=== PATIENT | male | born 1945 | race Caucasian/White ===

== ENCOUNTER 2016-07-09 08:43 | Day surgery (SDC) | payer OTHER ==
[2016-07-09 09:58] VITALS: TEMP 98.2; BMI 39.5
[2016-07-09] MEDS ORDERED: FUROSEMIDE 40 MG/4 ML INJECTABLE VIAL IVPUSH SCH (11:00)
--- NOTE | 2016-07-09 13:25 | CONSULT ---
Consult Consult Specialty:: Neurology Reason for Consultation:: Weakness - History of Present Illness History of Present Illness: 70-year-old man with a significant past medical history of pancreatic cancer ( diagnosed Stage 2 in 02/2015 - s/p radiation and chemotherapy therapy, currently on gemcitabine), CHF, cardiac arrest (x1), CT (x 7 [first at 32] - s/p bypass surgery + pacemaker defibrillator (last one replaced in 2013); not on Coumadin) , and gout, here for infusion. Neurology consulted for weakness. As per patient, long history of weakness in lower extremities ongoing for several months. Has noted new onset of falls and requires a walker for assistance. Reports numbness and tingling in both feet. - Alcohol/Substance Use Hx Alcohol Use: No - Smoking History Smoking history: Never smoked Aproximately how many cigarettes per day: 0 Home Medications - Allergies Allergies/Adverse Reactions: Allergies Allergy/AdvReac Type Severity Reaction Status Date / Time Iodinated Contrast Media - Allergy Severe Difficulty Verified 08/27/15 13:38 Oral and Breathing shellfish derived Allergy Severe Difficulty Verified 08/27/15 13:38 Breathing venom-honey bee Allergy Severe Difficulty Verified 08/27/15 13:38 Breathing codeine Allergy Mild Itching Verified 08/27/15 13:38 mushroom Allergy Unknown Verified 08/27/15 13:38 - Home Medications Home Medications: Ambulatory Orders Acetaminophen [Tylenol Extra Strength] 500 mg PO QID PRN 08/27/15 Amiodarone HCl [Cordarone -] 200 mg PO DAILY 08/27/15 Aspirin [Aspirin EC] 81 mg PO DAILY 08/27/15 Cyanocobalamin [Vitamin B12 -] 1,000 mcg PO DAILY 08/27/15 Furosemide [Lasix -] 40 mg PO DAILY 08/27/15 Gemcitabine HCl IV WEEKLY 08/27/15 Isosorbide Mononitrate [Imdur -] 30 mg PO DAILY 08/27/15 Metoprolol Succinate [Toprol Xl] 50 mg PO HS 08/27/15 Metoprolol Succinate [Toprol Xl] 100 mg PO DAILY 08/27/15 Multivit-Min/FA/Lycopen/Lutein [Centrum Silver Tablet] 1 each PO DAILY 08/27/15 Oxycodone HCl 5 mg PO QID PRN MDD 4 TABS 08/27/15 Promethazine HCl [Phenergan Liquid -] 5 ml PO QID PRN 03/14/16 Sacubitril/Valsartan [Entresto 24 mg-26 mg Tablet] 1 each PO BID 08/27/15 Review of Systems - Review of Systems Constitutional: reports: No Symptoms Eyes: reports: No Symptoms HENT: reports: No Symptoms Neck: reports: No Symptoms Cardiovascular: reports: No Symptoms Respiratory: reports: No Symptoms Gastrointestinal: reports: No Symptoms Physical Exam Vital Signs: Vital Signs Temperature 98.2 F 07/09/16 09:49 Pulse Rate 75 07/09/16 09:49 Respiratory Rate 18 07/09/16 09:49 Blood Pressure 106/55 07/09/16 09:49 O2 Sat by Pulse Oximetry (%) Constitutional: Yes: Well Nourished, No Distress Eyes: Yes: EOM Intact HENT: Yes: Atraumatic, Normocephalic Neck: Yes: Supple Respiratory: Yes: Regular Neurological: Yes: Other (MS awake alert oriented to time, place and person CNII -XII EOMI, face symmetric, tongue in midline Sensory Decreased vibration in lower extremities, ? decrease light touch bilateral feet Motor 5/5 x4) Assessment/Plan 71 year old man with a significant past medical history of pancreatic cancer status post radiation and chemotherapy therapy, currently on gemcitabine, CHF, cardiac arrest (x1), CT (x 7 [first at 32] - s/p bypass surgery + pacemaker defibrillator (last one replaced in 2013); not on Coumadin), and gout, here for infusion. Neurology consulted for weakness. As per patient, long history of weakness in lower extremities ongoing for several months. Has noted new onset of falls and requires a walker for assistance. Reports numbness and tingling in both feet. Exam significant for markedly decreased vibration in lower extremities, strength essentially intact. Unable to walk without walker Impression Likely peripheral neuropathy contributing to his symptoms of gait instability Recommend CT head without contrast as outpatient to rule out intracranial source Unable to undergo MRI due to pacer EMG/NCV as outpatient Follow up with [facility] for further management and workup
[2016-07-09 18:12] VITALS: BP 115/59; PULSE 71
== END 2016-07-09 18:15 | disposition home or self-care (01) ==
LOC: FBLOOD 08:43 → FM/S 08:47 → FBLOOD 18:15
PROVIDERS: ATTEND Internal Medicine Hematology & Oncology
PROC: 30233N1 Transfusion of Nonautologous Red Blood Cells into Peripheral Vein, Percutaneous Approach (ICD-10-PCS; principal; 2016-07-09)
PROC: 3E033GC Introduction of Other Therapeutic Substance into Peripheral Vein, Percutaneous Approach (ICD-10-PCS; 2016-07-09)
DX: D64.9 Anemia, unspecified (principal)
CPT/HCPCS: 36430; 86850; 86900; 86901; 86922; 96365; 96366; P9038; P9058

== ENCOUNTER 2016-08-05 14:56 | Inpatient (IN) | payer OTHER ==
--- NOTE | 2016-08-05 16:18 | PDOC ---
History of Present Illness - General Chief Complaint: Edema Stated Complaint: BLL SWELLING UPPER RT ARM SWELLING Time Seen by Provider: 08/05/16 15:49 - History of Present Illness Initial Comments: 08/05/16 16:13 71-year-old male with a past medical history of a prior CABG, CHF, and hypertension He was on Lasix 40 mg 3 times a week, which was recently increased to 40 mg daily He also has a history of pancreatic cancer with liver mets He got chemotherapy today and Dr. Christianson's office, was sent from Dr. Christianson's office He is complaining of bilateral leg swelling, left greater than right, and right arm swelling for one week He did get his chemotherapy today and a vein in his right arm He denies any associated chest pain, palpitations, shortness of breath, fevers and chills, or cough He has chronic abdominal pain from his metastatic pancreatic cancer, but it is well controlled with his narcotic regimen, and he has no change in his chronic abdominal pain today He denies any history of prior blood clots He has had significant anemia in the past requiring transfusion He denies any fall or injury He denies any other complaints at this time, and the remainder of the review of systems is negative Past History - Past Medical History Allergies/Adverse Reactions: Allergies Allergy/AdvReac Type Severity Reaction Status Date / Time Iodinated Contrast Media - Allergy Severe Difficulty Verified 08/27/15 13:38 Oral and Breathing shellfish derived Allergy Severe Difficulty Verified 08/27/15 13:38 Breathing venom-honey bee Allergy Severe Difficulty Verified 08/27/15 13:38 Breathing codeine Allergy Mild Itching Verified 08/27/15 13:38 mushroom Allergy Unknown Verified 08/27/15 13:38 Home Medications: Ambulatory Orders Acetaminophen [Tylenol -] 500 mg PO Q6H PRN 08/05/16 Amiodarone HCl 200 mg PO BID 08/05/16 Aspirin [ASA -] 81 mg PO DAILY 08/05/16 Capecitabine 500 mg PO BID 08/05/16 Furosemide [Lasix] 40 mg PO DAILY 08/05/16 Metoprolol Succinate [Toprol Xl] 50 mg PO HS 08/05/16 Metoprolol Succinate [Toprol Xl] 100 mg PO DAILY 08/05/16 Mexiletine HCl 150 mg PO BID 08/05/16 Multivit-Min/FA/Lycopen/Lutein [Centrum Silver Tablet] 1 each PO DAILY 08/05/16 Ondansetron [Zofran Odt -] 4 mg SL PRN PRN 08/05/16 Oxycodone HCl/Acetaminophen [Percocet 5-325 mg Tablet] 1 tab PO Q3H PRN Pramipexole Di-HCl [Mirapex] 0.5 mg PO BID 08/05/16 Ranolazine [Ranexa -] 500 mg PO BID 08/05/16 Vitamin B-12 1 tab PO DAILY 08/05/16 Vitamin B6 1 tab PO DAILY 08/05/16 Meclizine HCl [Antivert -] 12.5 mg PO TID PRN 08/06/16 Cancer: Yes (PANCREATIC,LIVER, HX RT & ON CHEMOTHERAPY) Cardiac Disorders: Yes (MO X7, PPM/DEFIBRILLATOR) Disorders: Yes (RENAL INSUFFICIENCY) - Surgical History Cardiac Surgery: Yes (CABG X5) Cholecystectomy: Yes - Psycho/Social/Smoking Cessation Hx Anxiety: No Suicidal Ideation: No Smoking History: Never smoked Have you smoked in the past 12 months: No Number of Cigarettes Smoked Daily: 0 Cigars Per Day: 0 Information on smoking cessation initiated: No Hx Alcohol Use: No Drug/Substance Use Hx: No Substance Use Type: None Hx Substance Use Treatment: No Review of Systems - Review of Systems Able to Perform ROS?: Yes Comments:: 08/05/16 16:14 12 point review of systems is as per history of present illness and otherwise negative *Physical Exam - Vital Signs Last Vital Signs Temp Pulse Resp BP Pulse Ox 97.8 F 83 20 141/67 97 08/05/16 14:57 08/05/16 14:57 08/05/16 14:57 08/05/16 14:57 08/05/16 14:57 - Physical Exam Comments: 08/05/16 16:18 Physical exam Last Vital Signs Temp Pulse Resp BP Pulse Ox 97.8 F 83 20 141/67 97 08/05/16 14:57 08/05/16 14:57 08/05/16 14:57 08/05/16 14:57 08/05/16 14:57 GENERAL: The patient is awake, alert, and fully oriented, and in no apparent distress. HEAD: Normal with no signs of trauma. EYES: Sclera anicteric, conjunctiva normal ENT: Moist mucous membranes. NECK: Normal range of motion, supple LUNGS: Breath sounds equal, clear to auscultation bilaterally. No wheezes, and no crackles. HEART: Regular rate and rhythm, normal S1 and S2 without murmur, rub or gallop. ABDOMEN: Soft, nontender, normoactive bowel sounds. No guarding, no rebound. No masses appreciated. EXTREMITIES: There is pitting edema bilaterally in the lower extremities, left greater than right (donor site for CABG is on the left leg) There is no calf or thigh tenderness, the dorsalis pedis pulses are present and full in the lower extremities bilaterally, and the toes are warm with intact sensation bilaterally The right arm is swollen with pitting edema The radial pulses intact, with intact sensation in all fingers in a good hand internet consultant The left upper extremity is essentially normal NEUROLOGICAL: Patient is alert and answering questions, and moving all extremities equally Grossly nonfocal neurologic exam PSYCH: Normal mood, normal affect. SKIN: Warm, Dry, ED Treatment Course - LABORATORY CBC & Chemistry Diagram: 08/06/16 06:00 08/06/16 06:00 - RADIOLOGY Radiology Studies Ordered: Category Date Time Status DUPLEX VASCUL US-1 ARM [US] Stat Ultrasound 08/05/16 16:10 Ordered DUPLEX VASCUL US-2LEGS [US] Stat Ultrasound 08/05/16 16:10 Ordered Medical Decision Making - Medical Decision Making 08/05/16 16:20 Bilateral edema in the lower extremities, she left greater than right, with clear lungs, as well as right upper extremity edema, and a patient with metastatic pancreatic cancer, who is currently getting chemotherapy, last dose today I am concerned about potential clots, versus CHF, versus hypoalbuminemic edema Of note the lungs are clear at this time 08/05/16 17:41 Stat bilateral lower the ultrasound-preliminary report from [facility]-extensive DVT bilateral lower extremity Right [id number] for DVT All labwork and reading pending Will start heparin bolus and drip Heparin 5000 bolus, 1000 drip 08/05/16 17:44 Case discussed with hospitalist-will admit-awaiting all studies-will need to go to telemetry at [facility] 08/05/16 18:39 Laboratory Results - last 24 hr 08/05/16 08/05/16 08/05/16 17:37 17:37 17:37 WBC 4.6 D RBC 3.17 L D Hgb 9.7 L D Hct 31.1 L D MCV 98.1 H MCHC 31.1 L RDW 23.0 H D Plt Count 222 D MPV 7.4 L INR 1.18 Sodium 135 L Potassium 4.5 Chloride 104 Carbon Dioxide 21 L Anion Gap 10 BUN 23 H Creatinine 1.4 H Creat Clearance w eGFR 49.82 Random Glucose 138 H Calcium 8.8 Magnesium 1.7 L Total Bilirubin 0.3 D AST 44 H D ALT 29 D Alkaline Phosphatase 262 H Total Protein 5.7 L Albumin 3.1 L 08/05/16 19:00 Case and all results discussed again with Dr. Mitchell There are no beds at [facility], will admit here to [facility] Hospitalist will see pt bobby 08/05/16 19:07 DVT ultrasound is read by radiology There is extensive bilateral lower extremity DVTs Right arm series pending-preliminary negative by holter technician Impression-extensive bilateral lower extremity DVT, metastatic pancreatic cancer *DC/Admit/Observation/Transfer Diagnosis at time of Disposition: DVT, bilateral lower limbs Qualifiers: Chronicity: acute - Discharge Dispostion Admit: Yes
[2016-08-05] MEDS ORDERED: HEPARIN NA (PORCINE) 5,000 UNITS/ML 1ML VIAL IVPUSH PRN (17:42)
[2016-08-05 17:45] LABS: MCH 30.5 pg (25.7-33.7); MCHC 31.1 g/dl (32.0-35.9); MEAN CELL VOLUME 98.1 fl (80-96); MEAN PLT VOLUME 7.4 fl (7.5-11.1); PLATELET COUNT 222 K/MM3 (134-434); WHITE BLOOD COUNT 4.6 K/mm3 (4.0-10.0)
[2016-08-05] MEDS ORDERED: HEPARIN INFUSION - 500 ML IVPB SCH (17:45)
[2016-08-05 17:57] LABS: INR 1.18 (0.82-1.09); PROTHROMBIN TIME (PATIENT) 13.2 SEC (10.2-13.0)
[2016-08-05 18:03] LABS: ALBUMIN 3.1 g/dl (3.5-5.0); BILIRUBIN,TOTAL 0.3 mg/dl (0.2-1.0); CALCIUM 8.8 mg/dl (8.4-10.2); CREATININE 1.4 mg/dl (0.6-1.3); MAGNESIUM 1.7 mg/dL (1.8-2.4); TOT PROT 5.7 g/dl (6.4-8.3)
[2016-08-05] MEDS ORDERED: HEPARIN INFUSION - 500 ML IVPB ONE (18:13)
[2016-08-05] MEDS ORDERED: HEPARIN NA (PORCINE) 5,000 UNITS/ML 1ML VIAL ONE (18:13)
[2016-08-05] MEDS ORDERED: ONDANSETRON *ODT* 4 MG TABLET SL PRN (22:18)
--- NOTE | 2016-08-05 22:29 | HP ---
CHIEF COMPLAINT: B/L LE edema PCP: Laci Lynch, oncology Dr. Christianson HISTORY OF PRESENT ILLNESS: This is a 71 year old male with a past medical history of CAD, AK x 7, s/p 5v CABG, CHF s/p AICD, HTN, cardiac arrest, pancreatic CA with liver mets, gout who presented to the ED from his oncologist office for swelling to bilat LE and right arm. Pt denies SOB, chest pain, palpitations, dizziness, N/V/D. Chronic abdominal pain r/t pancreatic CA, but no worse than usual. ER course was notable for: (1) doppler + B/L LE DVT (2) started on heparin drip Recent Travel: pt denies PAST MEDICAL HISTORY: CAD, AK x 7, s/p 5v CABG CHF s/p AICD HTN cardiac arrest pancreatic CA with liver mets gout PAST SURGICAL HISTORY: cholecystectomy AICD CABG Social History: Smoking: pt quit 50y ago, smoke approx 3ppd x 5 years Alcohol: rarely - 1-2x/year Drugs: pt denies Family History: adopted 8 total children: one son secondary to MVC, 1 son with 3vCABG age 30, others with OA, knee/back problems Allergies Iodinated Contrast Media - Oral and Allergy (Severe, Verified 08/27/15 13:38) Difficulty Breathing shellfish derived Allergy (Severe, Verified 08/27/15 13:38) Difficulty Breathing venom-honey bee Allergy (Severe, Verified 08/27/15 13:38) Difficulty Breathing codeine Allergy (Mild, Verified 08/27/15 13:38) Itching mushroom Allergy (Unknown, Verified 08/27/15 13:38) HOME MEDICATIONS: 3 Medication Instructions Recorded Acetaminophen [Tylenol -] 500 mg PO Q6H PRN 08/05/16 Amiodarone HCl 200 mg PO BID 08/05/16 Aspirin [ASA -] 81 mg PO DAILY 08/05/16 Capecitabine 500 mg PO DAILY 08/05/16 Furosemide [Lasix] 40 mg PO DAILY 08/05/16 Metoprolol Succinate [Toprol Xl] 50 mg PO HS 08/05/16 Metoprolol Succinate [Toprol Xl] 100 mg PO DAILY 08/05/16 Mexiletine HCl 150 mg PO BID 08/05/16 Multivit-Min/FA/Lycopen/Lutein 1 each PO DAILY 02/21/17 [Centrum Silver Tablet] Ondansetron [Zofran Odt -] 4 mg SL PRN PRN 08/05/16 Oxycodone HCl/Acetaminophen 1 tab PO Q3H 08/05/16 [Percocet 5-325 mg Tablet] Pramipexole Di-HCl [Mirapex] 0.5 mg PO BID 08/05/16 Ranolazine [Ranexa -] 500 mg PO BID 08/05/16 Vitamin B-12 1 tab PO DAILY 08/05/16 Vitamin B6 1 tab PO DAILY 08/05/16 REVIEW OF SYSTEMS CONSTITUTIONAL: Absent: fever, chills, diaphoresis, generalized weakness, malaise, loss of appetite, weight change HEENT: Absent: rhinorrhea, nasal congestion, throat pain, throat swelling, difficulty swallowing, mouth swelling, ear pain, eye pain, visual changes CARDIOVASCULAR: Present: peripheral edema Absent: chest pain, syncope, palpitations, irregular heart rate, lightheadedness RESPIRATORY: Absent: cough, shortness of breath, dyspnea with exertion, orthopnea, wheezing, stridor, hemoptysis GASTROINTESTINAL: Absent: abdominal pain, abdominal distension, nausea, vomiting, diarrhea, constipation, melena, hematochezia GENITOURINARY: Absent: dysuria, frequency, urgency, hesitancy, hematuria, flank pain, genital pain MUSCULOSKELETAL: Absent: myalgia, arthralgia, joint swelling, back pain, neck pain SKIN: Absent: rash, itching, pallor HEMATOLOGIC/IMMUNOLOGIC: Absent: easy bleeding, easy bruising, lymphadenopathy, frequent infections ENDOCRINE: Absent: unexplained weight gain, unexplained weight loss, heat intolerance, cold intolerance NEUROLOGIC: Absent: headache, focal weakness or paresthesias, dizziness, unsteady gait, seizure, mental status changes, bladder or bowel incontinence PSYCHIATRIC: Absent: anxiety, depression, suicidal or homicidal ideation, hallucinations. PHYSICAL EXAMINATION Vital Signs - 24 hr 3 08/05/16 08/05/16 14:57 19:44 Temperature 97.8 F 98 F Pulse Rate 83 Pulse Rate [ 74 Left] Respiratory 20 20 Rate Blood Pressure 141/67 Blood Pressure 121/62 [Right] O2 Sat by Pulse 97 95 Oximetry (%) GENERAL: Awake, alert, and fully oriented, in no acute distress. HEAD: Normal with no signs of trauma. EYES: Pupils equal, round and reactive to light, extraocular movements intact, sclera anicteric, conjunctiva clear. No lid lag. EARS, NOSE, THROAT: Ears normal, nares patent, oropharynx clear without exudates. Moist mucous membranes. NECK: Normal range of motion, supple without lymphadenopathy, JVD, or masses. LUNGS: Breath sounds equal, clear to auscultation bilaterally. No wheezes, and no crackles. No accessory muscle use. HEART: Regular rate and rhythm, normal S1 and S2 without murmur, rub or gallop. ABDOMEN: Soft, nontender, not distended, normoactive bowel sounds, no guarding, no rebound, no masses. No hepatomegaly or splenomegaly. MUSCULOSKELETAL: Normal range of motion at all joints. No bony deformities or tenderness. No CVA tenderness. UPPER EXTREMITIES: 2+ pulses, warm, well-perfused. No cyanosis. No clubbing. Cap refill <2 seconds. No peripheral edema. LOWER EXTREMITIES: 2+ pulses, warm, well-perfused. No calf tenderness. No peripheral edema. 2+ edema LLE, scar medial aspect, 1+ peripheral edema RLE NEUROLOGICAL: Cranial nerves II-XII intact. Normal speech. Normal gait. PSYCHIATRIC: Cooperative. Good eye contact. Appropriate mood and affect. SKIN: Warm, dry, normal turgor, no rashes or lesions noted. Laboratory Results - last 24 hr 3 08/05/16 08/05/16 08/05/16 17:37 17:37 17:37 WBC 4.6 D RBC 3.17 L D Hgb 9.7 L D Hct 31.1 L D MCV 98.1 H MCHC 31.1 L RDW 23.0 H D Plt Count 222 D MPV 7.4 L INR 1.18 Sodium 135 L Potassium 4.5 Chloride 104 Carbon Dioxide 21 L Anion Gap 10 BUN 23 H Creatinine 1.4 H Creat Clearance w eGFR 49.82 Random Glucose 138 H Calcium 8.8 Magnesium 1.7 L Total Bilirubin 0.3 D AST 44 H D ALT 29 D Alkaline Phosphatase 262 H B-Natriuretic Peptide 3426.53 H Total Protein 5.7 L Albumin 3.1 L CXR: Impression: Interval atelectatic changes and infiltrates in the right lung base US Duplex vascular BLLE: In the right lower extremity there is noncompressibility of the right common femoral vein with flow seen on the color Doppler images is suggestive of partial thrombosis. There is also thromboses of the superficial femoral and popliteal vein. Minimal flow on the right posterior tibial vein with normal compression. Normal flow in the greater saphenous and deep femoral vein In the left lower extremity there is also evidence of deep venous thromboses involving the common femoral, superficial femoral and popliteal vein. There is noncompression of the left posterior tibial vein however some flow was visualized. Normal flow in the left greater saphenous vein. Thrombosis of the left deep femoral vein. Incidentally noted arterial atheromatous plaques are present, bilaterally. There is no evidence of a Hewitt' s cyst in the popliteal fossa, bilaterally. Impression: Bilateral lower leg deep venous thromboses, as described above Left deep femoral vein thrombosis with abnormal flow in the right deep femoral vein suggestive of partial thrombosis. Normal flow in the greater saphenous vein, bilaterally US Duplex vascular RUE: IMPRESSION: There is no evidence of deep venous thrombosis in the right upper extremity. ASSESSMENT/PLAN: 71yM with PMH CAD, AK x 7, s/p 5v CABG, CHF s/p AICD, HTN, cardiac arrest, pancreatic CA with liver mets, gout presented to the ED with B/L LE edema and right arm edema who has been admitted for DVT B/L LE DVT - cont heparin drip for now. - oncology consult for further plan of care. Pancreatic CA - hold capecitabine until oncology consult CAD/CHF/HTN - cont home medications including lasix 40mg daily FEN - tolerating po, defer IVF - Repeat labs in am - low sodium diet Dispo: Pt currently requires inpatient care. Visit type - Emergency Visit Emergency Visit: Yes ED Registration Date: 08/05/16 Care time: The patient presented to the Emergency Department on the above date and was hospitalized for further evaluation of their emergent condition. - New Patient This patient is new to me today: Yes Date on this admission: 08/05/16 - Critical Care Critical Care patient: No
[2016-08-05] MEDS ORDERED: METOPROLOL SUCCINATE 50 MG TAB.SR.24H (FP) ONE (23:38)
[2016-08-05 23:40] LABS: ANISOCYTOSIS 2+; PLATELET COMMENT2 FEW LARGE PLTS; TEAR DROP CELLS FEW
[2016-08-05] MEDS: AMIODARONE HCL 200 MG TABLET (FP) PO SCH (23:40)
[2016-08-05] MEDS: PRAMIPEXOLE DIHYDROCHLORIDE 0.5 MG TABLET PO SCH (23:40)
[2016-08-05] MEDS: RANOLAZINE E.R. 500 MG TABLET (FP) PO SCH (23:40)
[2016-08-05] MEDS: METOPROLOL SUCCINATE 50 MG TAB.SR.24H (FP) PO SCH (23:42)
[2016-08-05] MEDS ORDERED: ONDANSETRON 4 MG TABLET PO PRN (23:56)
[2016-08-06 00:46] LABS: URINE APPEARANCE CLEAR; URINE BILIRUBIN NEGATIVE (NEGATIVE); URINE BLOOD NEGATIVE (NEGATIVE); URINE COLOR YELLOW; URINE GLUCOSE (UA) NEGATIVE (NEGATIVE); URINE KETONE NEGATIVE (NEGATIVE); URINE LEUK ESTERASE NEGATIVE (NEGATIVE); URINE NITRITE NEGATIVE (NEGATIVE); URINE PROTEIN NEGATIVE (NEGATIVE); URINE UROBILINOGEN NEGATIVE E.U./dl (0.2-1.0)
[2016-08-06 05:29] VITALS: BMI 40.4
[2016-08-06] MEDS: oxyCODONE HCL 5 MG TABLET PO PRN ×3 (05:47→21:28)
[2016-08-06] MEDS: ACETAMINOPHEN 500 MG TABLET (FP) PO PRN ×3 (05:49→21:29)
[2016-08-06 07:51] LABS: BASOPHIL 0.2 % (0-2.0); MCH 32.2 pg (25.7-33.7); MCHC 32.5 g/dl (32.0-35.9); MEAN CELL VOLUME 99.3 fl (80-96); MEAN PLT VOLUME 8.3 fl (7.5-11.1); NEUTROPHILS 91.5 % (42.8-82.8); PLATELET COUNT 199 K/MM3 (134-434); RDW 23.3 % (11.9-15.9); WHITE BLOOD COUNT 4.2 K/mm3 (4.0-10.0)
[2016-08-06 08:18] LABS: ALBUMIN 2.9 g/dl (3.4-5.0); BILIRUBIN,TOTAL 0.7 mg/dL (0.2-1.0); CALCIUM 8.4 mg/dL (8.5-10.1); CREATININE 1.5 mg/dL (0.7-1.3); PHOSPHOROUS 4.6 mg/dL (2.5-4.9); TOT PROT 5.7 g/dl (6.4-8.2)
--- NOTE | 2016-08-06 09:54 | EKG ---
Test Reason : Blood Pressure : / mmHG Vent. Rate : 074 BPM Atrial Rate : 074 BPM P-R Int : 202 ms QRS Dur : 120 ms QT Int : 436 ms P-R-T Axes : 045 -57 073 degrees QTc Int : 483 ms Atrial-sensed ventricular-paced rhythm Biventricular pacemaker detected ABNORMAL ECG WHEN COMPARED WITH ECG OF 29-JUN-2003 16:11, ELECTRONIC VENTRICULAR PACEMAKER HAS REPLACED SINUS RHYTHM Confirmed by NAVEEN ACHARYA, YOLY ([id number]) on 08/06/2016 9:53:55 AM Referred By: DR MARY ANN BALBUENA Confirmed By:YOLY HODGE MD
[2016-08-06] MEDS ORDERED: MEXILETINE HCL 150 MG PO SCH (10:00)
[2016-08-06] MEDS ORDERED: VITAMIN B6 PO SCH (10:00)
[2016-08-06] MEDS ORDERED: VITAMIN B12 PO SCH (10:00)
[2016-08-06] MEDS ORDERED: PT OWN MED DRAWER 7, Y5N ONE (11:49)
[2016-08-06] MEDS: ASPIRIN 81 MG CHEWABLE TABLETS PO SCH (12:04)
[2016-08-06] MEDS: PRAMIPEXOLE DIHYDROCHLORIDE 0.5 MG TABLET PO SCH ×2 (12:04→21:28)
[2016-08-06] MEDS: PYRIDOXINE HCL (B-6) 50 MG TABLET (FP) PO SCH (12:04)
[2016-08-06] MEDS: FUROSEMIDE 40 MG TABLET (FP) PO SCH (12:04)
[2016-08-06] MEDS: CYANOCOBALAMIN 1,000 MCG TABLET (FP) PO SCH (12:04)
[2016-08-06] MEDS: AMIODARONE HCL 200 MG TABLET (FP) PO SCH ×2 (12:04→21:28)
[2016-08-06] MEDS: RANOLAZINE E.R. 500 MG TABLET (FP) PO SCH ×2 (12:05→21:28)
[2016-08-06] MEDS: METOPROLOL SUCCINATE 100 MG TAB.SR.24H (FP) PO SCH (12:05)
[2016-08-06] MEDS: MULTIVITAMINS THER W-MINERALS COMBO TABLET (FP) PO SCH (12:05)
--- NOTE | 2016-08-06 17:16 | PN ---
Physical Exam: SUBJECTIVE: Patient seen and examined. Patient denies chest pain but reports dyspnea on minimal exertion. Tolerating room air. I spoke to Dr. Christianson this morning who is aware pt is on a heparin drip for DVT. recommended pt be placed on Lovenox protocol DVT dosage. However, after I reviewed pt's morning labs, noted pt creatinine to be 1.5. Will continue heparin drip for now and wait Dr. Christianson's recommendations OBJECTIVE: Vital Signs Period Temp Pulse Resp BP Sys/Cooper Pulse Ox Last 24 Hr 97.6 F-98.1 F 70-80 20-20 102-126/58-76 95 GENERAL: The patient is awake, alert, and fully oriented, in no acute distress. HEAD: Normal with no signs of trauma. EYES: PERRL, extraocular movements intact, sclera anicteric, conjunctiva clear. No ptosis. ENT: Ears normal, nares patent, oropharynx clear without exudates, moist mucous membranes. NECK: Trachea midline, full range of motion, supple. LUNGS: bilateral posterior lung sounds with diminished breath sounds. HEART: Regular rate and rhythm ABDOMEN: Soft, nontender, nondistended, normoactive bowel sounds, no guarding, no rebound, no hepatosplenomegaly, no masses. EXTREMITIES: bilateral lower ext edema, left > right NEUROLOGICAL: Normal speech, gait not observed. PSYCH: Normal mood, normal affect. SKIN: Warm, dry, normal turgor, no rashes or lesions noted Laboratory Results - last 24 hr 08/05/16 08/06/16 08/06/16 22:08 00:30 06:00 WBC 4.2 RBC 3.10 L Hgb 10.0 L Hct 30.8 L MCV 99.3 H MCHC 32.5 RDW 23.3 H Plt Count 199 MPV 8.3 Neutrophils % 91.5 H Lymphocytes % 3.7 L Monocytes % 4.6 Eosinophils % 0.0 Basophils % 0.2 PTT (Actin FS) 68.6 H Sodium Potassium Chloride Carbon Dioxide Anion Gap BUN Creatinine Creat Clearance w eGFR Random Glucose Calcium Phosphorus Magnesium Total Bilirubin AST ALT Alkaline Phosphatase Total Protein Albumin Urine Color Yellow Urine Appearance Clear Urine pH 5.0 Ur Specific Tama 1.016 Urine Protein Negative Urine Glucose (UA) Negative Urine Ketones Negative Urine Blood Negative Urine Nitrite Negative Urine Bilirubin Negative Urine Urobilinogen Negative Ur Leukocyte Esterase Negative 08/06/16 06:00 WBC RBC Hgb Hct MCV MCHC RDW Plt Count MPV Neutrophils % Lymphocytes % Monocytes % Eosinophils % Basophils % PTT (Actin FS) Sodium 138 Potassium 4.5 Chloride 105 Carbon Dioxide 23 Anion Gap 10 BUN 26 H Creatinine 1.5 H Creat Clearance w eGFR 46.00 Random Glucose 154 H Calcium 8.4 L Phosphorus 4.6 Magnesium 2.0 Total Bilirubin 0.7 AST 36 ALT 32 Alkaline Phosphatase 307 H Total Protein 5.7 L Albumin 2.9 L Urine Color Urine Appearance Urine pH Ur Specific Tama Urine Protein Urine Glucose (UA) Urine Ketones Urine Blood Urine Nitrite Urine Bilirubin Urine Urobilinogen Ur Leukocyte Esterase Active Medications Generic Name Dose Route Start Last Admin Trade Name Freq PRN Reason Stop Dose Admin Acetaminophen 500 mg 08/05/16 22:18 08/06/16 16:31 Tylenol - PO 500 mg Q3H PRN Administration PAIN Amiodarone HCl 200 mg 08/05/16 22:30 08/06/16 12:04 Cordarone - PO 200 mg BID MARCUS Administration Aspirin 81 mg 08/06/16 10:00 08/06/16 12:04 Asa - PO 81 mg DAILY MARCUS Administration Cyanocobalamin 1,000 mcg 08/06/16 10:00 08/06/16 12:04 Vitamin B12 - PO 1,000 mcg DAILY MARCUS Administration Furosemide 40 mg 08/06/16 10:00 08/06/16 12:04 Lasix - PO 40 mg DAILY MARCUS Administration Heparin Sodium (Porcine) 5,000 unit 08/05/16 17:42 08/05/16 18:27 Heparin - IVPUSH 5,000 unit PRN PRN Administration Heparin Heparin Sodium/Dextrose 500 mls @ 20 mls/hr 08/05/16 17:45 08/06/16 01:44 Heparin Infusion - IVPB 1,000 units/hr TITR MARCUS Titration Protocol 1,000 UNITS/HR Metoprolol Succinate 100 mg 08/06/16 10:00 08/06/16 12:05 Toprol Xl - PO 100 mg DAILY MARCUS Administration Metoprolol Succinate 50 mg 08/05/16 23:45 08/05/16 23:42 Toprol Xl - PO 50 mg HS MARCUS Administration Multivitamins/Minerals 1 each 08/06/16 10:00 08/06/16 12:05 Theragran-M PO 1 each DAILY MARCUS Administration Non-Formulary Medication 150 mg 08/06/16 10:00 Mexiletine Hcl [Mexiletine Hcl] PO BID MARCUS Ondansetron HCl 4 mg 08/05/16 23:56 Zofran - PO Q6H PRN NAUSEA Oxycodone HCl 5 mg 08/05/16 22:21 08/06/16 16:34 Roxicodone - PO 5 mg Q3H PRN Administration MODERATE PAIN Pramipexole Dihydrochloride 0.5 mg 08/05/16 22:30 08/06/16 12:04 Mirapex - PO 0.5 mg BID MARCUS Administration Pyridoxine HCl 100 mg 08/06/16 10:00 08/06/16 12:04 Vitamin B6 - PO 100 mg DAILY MARCUS Administration Ranolazine 500 mg 08/05/16 22:30 08/06/16 12:05 Ranexa - PO 500 mg BID MARCUS Administration ASSESSMENT/PLAN: Patient is a 71 year old male with a significant past medical history of CAD, [place] x 7, s/p 5 vessel CABG, CHF s/p AICD, hypertension, cardiac arrest, pancreatic CA with mets to the liver. He presented to the ED on 08/05/2016 from his oncologist office when edema was noted to his bilateral lower ext. and right arm. Pt denies SOB, chest pain, palpitations, dizziness, N/V/D. Patient is on PO chemotherapy of Cepectabine. His Oncologist is Dr. Christianson who has been consulted. Imaging: Chest xray 08/05/2016: Interval atelectatic changes and infiltrates in the right lung base US Duplex vascular: Bilateral lower leg deep venous thrombosis above left deep femoral vein thrombosis with abnormal flow in the right deep femoral vein suggestive of partial thrombosis. Normal flow in the greater saphenous vein, bilaterally US Duplex vascular RUE: There is no evidence of deep venous thrombosis in the right upper extremity. Hematology/Oncology Bilateral LE DVT - acute Assessment/Plan: On Heparin drip currently. Creatinine 1.5 which patient states is about his baseline, will defer further anticoagulants to hematology. Pancreatic CA with liver mets Assessment/Plan: On chemo agent of capecitabine which is currently on hold pending Oncology follow up. Cardiology: Coronary artery disease Congestive heart failure Hypertension Assessment/Plan: On home medications of amiodorone 200mg BID, ASA 81mg, Lasix 40mg daily, Toprol 100mg daily, Toprol 50mg @hs, Mexiletine 150mg PO BID, Ranexa 500mg BID : Chronic Kidney Disease Assessment/Plan: Bun/Creatinine 26/1.5, will defer adding Lovenox secondary to elevated creatinine Patient states his baseline creatinine is ~ 1.3 Monitor kidney function while on Lasix If worsening renal function, will consult Renal F.E.N. Fluids: no IVF, tolerating PO Electroytes: within normal limits, monitor renal function Nutrition: Low sodium diet Prophylaxis: DVT: heparin drip GI: Protonix daily Dispo: Pt currently requires inpatient care. Full Code.
[2016-08-06] MEDS: METOPROLOL SUCCINATE 50 MG TAB.SR.24H (FP) PO SCH (21:28)
[2016-08-06] MEDS ORDERED: METOPROLOL SUCCINATE 50 MG TAB.SR.24H (FP) PO SCH (22:00)
[2016-08-07 08:51] LABS: BASOPHIL 0.3 % (0-2.0); EOSINOPHIL 0.2 % (0-4.5); MCH 32.2 pg (25.7-33.7); MCHC 32.9 g/dl (32.0-35.9); MEAN PLT VOLUME 7.5 fl (7.5-11.1); NEUTROPHILS 88.2 % (42.8-82.8); PLATELET COUNT 228 K/MM3 (134-434); RDW 23.2 % (11.9-15.9); WHITE BLOOD COUNT 5.5 K/mm3 (4.0-10.0)
[2016-08-07] MEDS: RANOLAZINE E.R. 500 MG TABLET (FP) PO SCH (09:01)
[2016-08-07] MEDS: AMIODARONE HCL 200 MG TABLET (FP) PO SCH (09:01)
[2016-08-07] MEDS: CYANOCOBALAMIN 1,000 MCG TABLET (FP) PO SCH (09:01)
[2016-08-07] MEDS: MULTIVITAMINS THER W-MINERALS COMBO TABLET (FP) PO SCH (09:01)
[2016-08-07] MEDS: PRAMIPEXOLE DIHYDROCHLORIDE 0.5 MG TABLET PO SCH (09:01)
[2016-08-07] MEDS: ASPIRIN 81 MG CHEWABLE TABLETS PO SCH (09:01)
[2016-08-07] MEDS: METOPROLOL SUCCINATE 100 MG TAB.SR.24H (FP) PO SCH (09:01)
[2016-08-07] MEDS: ACETAMINOPHEN 500 MG TABLET (FP) PO PRN (09:02)
[2016-08-07] MEDS: FUROSEMIDE 40 MG TABLET (FP) PO SCH (09:02)
[2016-08-07] MEDS: oxyCODONE HCL 5 MG TABLET PO PRN (09:02)
[2016-08-07 09:17] LABS: ALBUMIN 2.8 g/dl (3.4-5.0); CALCIUM 8.3 mg/dL (8.5-10.1); CREATININE 1.5 mg/dL (0.7-1.3)
[2016-08-07 09:19] LABS: BILIRUBIN,TOTAL 0.9 mg/dL (0.2-1.0); TOT PROT 5.4 g/dl (6.4-8.2)
[2016-08-07] MEDS ORDERED: PANTOPRAZOLE 40 MG TABLET (FP) PO SCH (10:00)
[2016-08-07] MEDS ORDERED: ENOXAPARIN NA (PORCINE) 120 MG/0.8 ML DISP.SYRIN SQ SCH (10:00)
[2016-08-07] MEDS: PYRIDOXINE HCL (B-6) 50 MG TABLET (FP) PO SCH (14:35)
--- NOTE | 2016-08-07 14:39 | DS ---
Physical Exam: SUBJECTIVE: Patient seen and examined. He feels no lower extremity pain, CP, sob , he has diffuse abd pain, however tolerable, he says the swelling is better OBJECTIVE: Vital Signs Period Temp Pulse Resp BP Sys/Cooper Pulse Ox Last 24 Hr 97.2 F-98 F 72-82 18-20 111-122/68-74 94-95 PHYSICAL EXAM GENERAL: The patient is awake, alert, and fully oriented, in no acute distress. HEAD: Normal with no signs of trauma. EYES: PERRL, extraocular movements intact, sclera anicteric, conjunctiva clear. ENT: Ears normal, nares patent, oropharynx clear without exudates, moist mucous membranes. NECK: Trachea midline, full range of motion, supple. LUNGS: Breath sounds equal, clear to auscultation bilaterally, no wheezes, no crackles, no accessory muscle use. HEART: Regular rate and rhythm, S1, S2 without murmur, rub or gallop. midline sternal scar -healed ABDOMEN: Soft, diffuse mild tenderness , nondistended, normoactive bowel sounds , no guarding, no rebound, no hepatosplenomegaly, no masses. EXTREMITIES: b/l le edema L>R, +1 edema, no tenderness, no erythema noted, LLE lateral healed scar NEUROLOGICAL: Cranial nerves II through XII grossly intact. Normal speech, gait not observed. PSYCH: Normal mood, normal affect. SKIN: dry flakey skin, Warm, no rashes or lesions noted. Telemetry: V placed, SR 80's Laboratory Results - last 24 hr 08/07/16 08/07/16 08/07/16 08:30 08:35 08:35 WBC 5.5 D RBC 2.86 L Hgb 9.2 L Hct 28.0 L MCV 98.0 H MCHC 32.9 RDW 23.2 H Plt Count 228 MPV 7.5 Neutrophils % 88.2 H Lymphocytes % 3.4 L Monocytes % 7.9 Eosinophils % 0.2 D Basophils % 0.3 PTT (Actin FS) 49.8 H Sodium 140 Potassium 4.2 Chloride 108 H Carbon Dioxide 22 Anion Gap 10 BUN 29 H Creatinine 1.5 H Creat Clearance w eGFR 46.00 Random Glucose 116 H D Calcium 8.3 L Magnesium 2.0 Total Bilirubin 0.9 D AST 42 H ALT 39 D Alkaline Phosphatase 279 H Total Protein 5.4 L Albumin 2.8 L HOSPITAL COURSE: Date of Admission:08/05/16 Date of Discharge: 08/07/16 Minutes to complete discharge: 35 Discharge Summary Reason For Visit: DVT Current Active Problems DVT, bilateral lower limbs (Acute) Hospital Course: Initial Hospital Course: Briefly, this 71 year old male with a past medical history of CAD, [place] x 7, s/p 5v CABG, CHF s/p AICD, HTN, cardiac arrest, pancreatic CA with liver mets, gout admitted to ED from his oncologist office for swelling to bilateral LE and right arm. Chronic abdominal pain r/t pancreatic Cancer. Imaging: - US duplex doppler: notable for bilateral lower leg deep venous thrombosis above left deep femoral vein thrombosis with abnormal flow in the right deep femoral vein suggestive of partial thrombosis. Normal flow in the greater saphenous vein, bilaterally - US duplex RUE negative for DVT Subsequent Hospital Course: Patient was initially started on heparin gtt. His cr is around baseline. Discussed with Dr. Christianson, will give 120mg BID Lovenox today, tomorrow he will start Fragmin, this medication has been called into his pharmacy by Dr. Christianson' s office and pt is aware to pick it up. Patient is to resume home medication as directed and on the regular schedule Pt and family aware and agree to above plan Condition: Stable - Instructions Diet, Activity, Other Instructions: Please return to the ED for any new, persistent, or worsening symptoms. Follow up with your PCP in 1 week Keep appt with Dr. Christianson for next week, he is expecting you Resume home medications as directed Take one dose of Lovenox 120mg tonight, tomorrow you will start Fragmin daily for treatment of your DVTs. Referrals: Bhaskar Christianson MD [Staff Physician] - Disposition: HOME - Home Medications Comprehensive Discharge Medication List: Ambulatory Orders Acetaminophen [Tylenol .Extra-Strength -] 500 mg PO Q6H PRN 08/05/16 Amiodarone HCl 200 mg PO BID 08/05/16 Aspirin [ASA -] 81 mg PO DAILY 08/05/16 Capecitabine 500 mg PO BID 08/05/16 Furosemide [Lasix] 40 mg PO DAILY 08/05/16 Metoprolol Succinate [Toprol Xl] 50 mg PO HS 08/05/16 Metoprolol Succinate [Toprol Xl] 100 mg PO DAILY 08/05/16 Mexiletine HCl 150 mg PO BID 08/05/16 Multivit-Min/FA/Lycopen/Lutein [Centrum Silver Tablet] 1 each PO DAILY 08/05/16 Ondansetron [Zofran Odt -] 4 mg SL PRN PRN 08/05/16 Oxycodone HCl/Acetaminophen [Percocet 5-325 mg Tablet] 1 tab PO Q3H PRN Pramipexole Di-HCl [Mirapex] 0.5 mg PO BID 08/05/16 Ranolazine [Ranexa -] 500 mg PO BID 08/05/16 Vitamin B-12 1 tab PO DAILY 08/05/16 Vitamin B6 1 tab PO DAILY 08/05/16 Meclizine HCl [Antivert -] 12.5 mg PO TID PRN 08/06/16 Enoxaparin [Lovenox -] 120 mg SQ HS #1 disp.syrin 08/07/16 This patient is new to me today: Yes Date on this admission: 08/07/16 Emergency Visit: Yes ED Registration Date: 08/05/16 Care time: The patient presented to the Emergency Department on the above date and was hospitalized for further evaluation of their emergent condition. Critical Care patient: No - Discharge Referral Referred to [facility] No
[2016-08-07 15:00] VITALS: BP 124/65; PULSE 79; TEMP 97.9
== END 2016-08-07 15:10 | disposition home or self-care (01) | DRG 300 ==
LOC: FER 14:56 → J4S 21:24
PROVIDERS: ADMIT Internal Medicine; ATTEND Nurse Practitioner Acute Care
DX: I82.413 Acute embolism and thrombosis of femoral vein, bilateral (principal); C25.7 Malignant neoplasm of other parts of pancreas; C78.7 Secondary malignant neoplasm of liver and intrahepatic bile duct; I25.10 Atherosclerotic heart disease of native coronary artery without angina pectoris; I25.2 Old myocardial infarction; M10.9 Gout, unspecified; I12.9 Hypertensive chronic kidney disease with stage 1 through stage 4 chronic kidney disease, or unspecified chronic kidney disease; N18.9 Chronic kidney disease, unspecified; Z95.810 Presence of automatic (implantable) cardiac defibrillator; Z95.5 Presence of coronary angioplasty implant and graft; Z95.1 Presence of aortocoronary bypass graft
CPT/HCPCS: 36415; 71020-TC; 80053; 81003; 83735; 83880; 84100; 85025; 85027; 85610; 85730; 93005; 93970-TC; 93971; 99283-25; J1644

== ENCOUNTER 2016-08-20 08:51 | Day surgery (SDC) | payer OTHER ==
[2016-08-20 11:58] VITALS: BP 115/68; PULSE 72; TEMP 98.2; BMI 39.5
[2016-08-20] MEDS ORDERED: FUROSEMIDE 40 MG/4 ML INJECTABLE VIAL IVPUSH ONE (16:00)
== END 2016-08-20 19:35 | disposition home or self-care (01) ==
LOC: FM/S 08:51 → FBLOOD 08:51
PROVIDERS: ATTEND Internal Medicine Hematology & Oncology
PROC: 30233N1 Transfusion of Nonautologous Red Blood Cells into Peripheral Vein, Percutaneous Approach (ICD-10-PCS; principal; 2016-08-20)
PROC: 3E033GC Introduction of Other Therapeutic Substance into Peripheral Vein, Percutaneous Approach (ICD-10-PCS; 2016-08-20)
DX: D64.9 Anemia, unspecified (principal)
CPT/HCPCS: 36430; 86922; P9038; P9058